=== PATIENT | male | born 2005 | race Hispanic/Latino ===

== ENCOUNTER 2025-01-01 13:38 | Emergency (ER) | payer SELFPAY ==
[2025-01-01 13:42] VITALS: BP 124/76; PULSE 78; RESP 16; TEMP 37.1; O2SAT 98; BMI 19.5
== END 2025-01-01 14:08 | disposition left against medical advice (07) ==
LOC: ED 14:15
DX: F32.A Depression, unspecified (principal)

== ENCOUNTER 2025-01-22 15:57 | Emergency (ER) | payer SELFPAY ==
[2025-01-22 15:58] VITALS: BP 127/80; PULSE 78; RESP 18; TEMP 36.5; O2SAT 98; BMI 18.0
[2025-01-22 17:00] LABS: Hematocrit 43.4 % (40-54); Hemoglobin 15.1 g/dL (13.0-16.5); Immature Granulocytes Count 0.010 X10^3/uL (0.0-0.0); Mean Corp Hgb Conc 34.8 g/dL (32-36); Mean Corpuscular Volume 82.4 fL (80-94); Mean Platelet Vol. 9.8 fl (6.2-12.0); NRBC Flagged by Analyzer 0 % (0-5); Platelet Count 267 K/mm3 (150-450); RBC Distribution Width CV 12.8 % (11.6-14.6); RBC Distribution Width SD 38.5 fl (35.1-43.9); Red Blood Count 5.27 M/mm3 (4.6-6.2); White Blood Count 6.9 K/mm3 (4.4-11.0)
[2025-01-22 17:56] LABS: AST(SGOT) 25 U/L (<=37); Alanine Aminotransfer ALT/SGPT 16 U/L (<=46); Albumin, Serum 4.9 g/dL (3.5-5.0); Alkaline Phosphatase 75 U/L (40-129); Anion Gap 12 (5-15); BUN 11 mg/dL (4-19); BUN/Creat Ratio 9.4 RATIO (10-20); Calcium,Total 9.7 mg/dL (7.6-11.0); Carbon Dioxide 24.1 mmol/L (21.0-32.0); Chloride 103 mmol/L (98-108); Estimated Creatinine Clearance 73.13 ml/min (50-250); Globulin 2.9 g/dL (2.2-4.2); Glucose 92 mg/dL (70-99); Lipase 20 U/L (13-75); Potassium 4.1 mmol/L (3.3-5.1)
[2025-01-22 18:13] VITALS: BP 123/81; PULSE 79; RESP 16; O2SAT 99
[2025-01-22 20:00] VITALS: BP 116/67; PULSE 83; RESP 16; O2SAT 98
[2025-01-22 20:41] VITALS: BP 112/55; PULSE 65; RESP 16; TEMP 36.5; O2SAT 97
== END 2025-01-22 20:44 | disposition home or self-care (01) ==
PROVIDERS: Emergency Provider Emergency Medicine; Visit Provider Emergency Medicine
DX: K92.0 Hematemesis (principal); F17.210 Nicotine dependence, cigarettes, uncomplicated; F17.290 Nicotine dependence, other tobacco product, uncomplicated
CPT/HCPCS: 80053; 83690; 85025; 99283; A4216